=== PATIENT | male | born 1990 | race Two or more races ===

== ENCOUNTER 2025-02-03 21:59 | Emergency (ER) | payer OTHER, SELFPAY ==
[2025-02-03 22:15] VITALS: BP 142/90; PULSE 70; RESP 20; TEMP 37; O2SAT 95
--- NOTE | 2025-02-03 22:59 | PD.EDSKIN ---
ED Skin Abcess FB-RME/HPI General Chief complaint: Allergic Reaction Stated complaint: RASH Time Seen by Provider: 02/03/25 22:02 Source: patient, RN notes reviewed and old records reviewed Arrival date/time: 02/03/25 21:59 Mode of arrival: ambulatory Limitations: no limitations RME / HPI RME / HPI narrative: 34yom presents to ED for itchy rash to bilateral upper extremities that started this evening. Patient states he is currently being treated for H. pylori x1 week. No prior allergies or reactions to the amoxicillin or clarithromycin. No other new exposures reported. Patient denies tongue/throat swelling, shortness of breath or nausea/vomiting. 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 Related Data Home Medications ?Medication ?Instructions ?Recorded ?Confirmed cetirizine 10 mg tablet (Zyrtec) 10 mg PO QDAY 03/27/19 07/19/19 Previous Rx's ?Medication ?Instructions ?Recorded cetirizine 10 mg tablet (Zyrtec) 10 mg PO QDAY #30 tabs 02/03/25 diphenhydramine HCl 25 mg tablet 50 mg (2 x 25 mg) PO Q6H PRN 02/03/25 (Benadryl Allergy) itching or rash #30 tabs Allergies Allergy/AdvReac Type Severity Reaction Status Date / Time No Known Allergies Allergy Verified 02/03/25 22:01 Review of Systems Review of Systems Systems Reviewed: All systems reviewed, normal except as documented Constitutional Constitutional: Denies chills and Denies fever(s) ENT Ears, Nose, Mouth, and Throat: Denies throat swelling and Denies tongue swelling Cardiovascular Cardiovascular: Denies dyspnea Respiratory Respiratory: Denies dyspnea Gastrointestinal Gastrointestinal: Denies nausea and Denies vomiting Integumentary/Breasts Skin/Breast: Reports pruritus and Reports rash Allergic/Immunologic Allergic/Immunologic: Denies throat swelling and Denies tongue swelling Past Medical History Past Medical History GASTROINTESTINAL: Positive Obesity ENDOCRINE: Positive Diabetes Mellitus Type 2 Surgical History OTHER SURGICAL HX: denies pshx Social History SMOKING STATUS: Never smoker SUBSTANCE USE: does not use ALCOHOL: Current (social) ED Exam General Limitations: Present no limitations General appearance: Present alert and in no apparent distress Head Head exam: Present atraumatic and normocephalic Eye Eye exam: Present normal appearance, PERRL and EOMI ENT ENT exam: Present normal exam and mucous membranes moist Neck Neck exam: Present normal inspection and full ROM Chest Chest inspection: Present normal inspection and symmetric chest wall rise Respiratory Respiratory exam: Present normal lung sounds bilaterally; Absent respiratory distress, wheezes or stridor Cardiovascular Cardiovascular exam: Present regular rate and normal rhythm Extremities Exam Extremities exam: Present normal inspection and full ROM Neurological Exam Neurological exam: Present alert and oriented X3 Psychiatric Psychiatric exam: Present normal affect and normal mood Skin Skin exam: Present warm, dry, intact and normal color; Absent rash Course Quality Measures none Orders Category Date Time Status Dexamethasone Inj [Decadron Inj] Med 02/03/25 22:59 Discontinued 10 mg PO X1 ONE lorataDINE [Claritin] Med 02/03/25 22:59 Discontinued 10 mg PO X1 ONE Vital Signs Vital signs: Vital Signs Temperature 98.6 F 02/03/25 22:15 Pulse Rate 70 02/03/25 22:15 Respiratory Rate 20 02/03/25 22:15 Blood Pressure 142/90 H 02/03/25 22:15 Pulse Oximetry (%) 95 02/03/25 22:15 Oxygen Delivery Method Room Air 02/03/25 22:15 Skin / Abscess / Foreign Body MDM Narrative MDM Narrative:: 34yom presents to ED for itchy rash to bilateral upper extremities that started this evening. Patient states he is currently being treated for H. pylori x1 week. No prior allergies or reactions to the amoxicillin or clarithromycin. No other new exposures reported. Patient denies tongue/throat swelling, shortness of breath or nausea/vomiting. 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 Patient is well-appearing, no evidence of airway compromise or respiratory distress. Rash resolved prior to ED arrival. Possible drug allergy to amoxil or clarithromycin. Recommended close GI follow-up for further medication eval and management. Stable for discharge, RTED precautions given. Patient data External records reviewed:: [facility] previous records (03/27/19 ED visit for lumbar strain) Clinical information provided by:: patient Social determinants that could affect healthcare access:: none Patient has the following chronic illnesses:: Diabetes, obesity How is presenting disease/condition affected by chronic disease/condition?: uneffected by Evaluation data The following diagnostics were reviewed and interpreted by me:: other (specify) (None) Lab and/or radiology exams considered but not ordered:: None Interpretation Summary: na Medications / Prescriptions Medications or Prescriptions considered but not ordered:: None Medication administrations:: Medication Administration History Discontinued Medications Dexamethasone Sodium Phosphate (Dexamethasone Sod Phos Inj 10 Mg/Ml Vial) 10 mg PO X1 ONE Stop: 02/03/25 23:00 Last Admin: 02/03/25 23:14 Dose: 10 mg Documented By: RIYA Comments: PO Loratadine (Loratadine 10 Mg Tablet) 10 mg PO X1 ONE Stop: 02/03/25 23:00 Last Admin: 02/03/25 23:15 Dose: 10 mg Documented By: RIYA Above medications administered in ED Consultations Consultation(s) initiated? (list below): No Diagnosis Skin/Abscess Differential Diagnosis: viral exanthem, urticaria, allergic reaction to drug, eczema and contact dermatitis Most likely diagnosis given after review of the tests above:: Rash, pruritus Admission Indicated Admission indicated?: not indicated Admission Request Was there a request for admission?: No Disposition Plan Disposition Plan: Discharge Discharge Attestation Discharge Attestation: The patient and all family members were given an opportunity to ask questions and understood the discharge instructions. Discharge instructions specifically effects, indications for sooner follow up or return to the emergency department, and the expected course of current diagnosis. Patient condition: Stable Discharge Plan Plan Patient Disposition: HOME (Self Care) Patient condition on transfer: Stable Prescriptions/Referrals Prescriptions/Med Rec: New cetirizine [Zyrtec] 10 mg tablet 10 mg PO QDAY Qty: 30 0RF diphenhydramine HCl [Benadryl Allergy] 25 mg tablet 50 mg PO Q6H PRN (Reason: itching or rash) Qty: 30 0RF No Action cetirizine [Zyrtec] 10 mg Tablet 10 mg PO QDAY Referrals: Everardo Guevara PA-C [Primary Care Provider] - In 1 week Problem List Clinical Impression: Rash, Pruritus Patient/Caregiver Discharge Instructions Education Materials: ED Dermatitis Non Specific Rash Print Language: Yakut Stand Alone Forms: [employer] Award Info., Patient Portal Info Letter PA/COMMUNITY HEALTH NAVIGATOR Supervising Physician PA/COMMUNITY HEALTH NAVIGATOR Supervising Physician: [place]
[2025-02-03] MEDS: DEXAMETHASONE SOD PHOS INJ 10 MG/ML VIAL PO (23:14)
[2025-02-03 23:40] VITALS: RESP 18
== END 2025-02-03 23:41 | disposition home or self-care (01) ==
PROVIDERS: Emergency Provider Emergency Medicine; PCP Physician Assistant
DX: L29.9 Pruritus, unspecified (principal); E11.9 Type 2 diabetes mellitus without complications; E66.9 Obesity, unspecified
CPT/HCPCS: 99283; J1100; A9270